=== PATIENT | male | born 2000 | race Caucasian/White ===

== ENCOUNTER 2023-11-24 21:36 | Emergency (ER) | payer SELFPAY ==
[~2023-11-24] VITALS: Ht 172.7 cm; Wt 67.5 kg
[2023-11-24] MEDS ORDERED: ondansetron HCL 4 MG/2 ML VIAL IV ONE (22:00)
[2023-11-24] MEDS ORDERED: SODIUM CHLORIDE 0.9% 1,000 ML IV ONE (22:00)
[2023-11-24] MEDS ORDERED: MORPHINE SULFATE 4 MG/ML VIAL IV ONE (22:00)
[2023-11-24 22:14] LABS: HEMATOCRIT 45.5 % (35.0-50.0); HEMOGLOBIN 15.8 g/dL (12.0-18.0); MCH 30.3 (27-36); MCHC 34.7 g/dl (30-36); MCV 87.3 fl (81-99); PLATELET COUNT 158 K/uL (140-440); RBC 5.22 M/ul (4.3-5.7); RDW 13.3 (10.5-15.0)
[2023-11-24 22:24] LABS: ALBUMIN 4.6 g/dL (3.4-5.0); ALBUMIN/GLOBULIN RATIO 1.21 (1.1-2.4); ANION GAP 15.7 (7-21); BILIRUBIN, TOTAL 0.5 ng/dL (0.2-1.0); BUN/CREATININE RATIO 15.07 (6.0-28.6); CALCIUM 9.6 mg/dL (8.5-10.1); CREATININE, SERUM 1.26 mg/dL (0.70-1.30); POTASSIUM 3.7 mmol/L (3.5-5.1); PROTEIN, TOTAL 8.4 g/dL (6.4-8.2)
[2023-11-24 22:30] LABS: BANDS, MANUAL DIFF 20; LYMPHOCYTES, MANUAL DIFF 23; MONOCYTES, MANUAL DIFF 12; NEUTROPHILS, MANUAL DIFF 44
[2023-11-24 22:52] LABS: BILIRUBIN, URINE NEGATIVE (negative); BLOOD/HGB, URINE NEGATIVE (Negative); KETONE, URINE >=80 (Negative); LEUK ESTERASE, URINE NEGATIVE (negative); NITRITE, URINE NEGATIVE (negative)
[2023-11-24 22:59] LABS: INFLUENZA B NAA POSITIVE (NEGATIVE); RESPIRATORY SYNCYTIAL VIR NAA NEGATIVE (NEGATIVE)
[2023-11-24] MEDS ORDERED: LOMOTIL TABLET1 EACH PO (23:37)
[2023-11-24] MEDS ORDERED: ONDANSETRON ODT8 MG PO (23:37)
[2023-11-24] MEDS ORDERED: TAMIFLU75 MG PO (23:37)
[2023-11-24] MEDS ORDERED: ONDANSETRON 4 MG HOME.PACK SL ONE (23:45)
[2023-11-25 00:12] VITALS: BP 121/77
== END 2023-11-25 00:05 | disposition home or self-care (01) ==
LOC: ED 21:36
PROVIDERS: Family Medicine
DX: J10.1 Influenza due to other identified influenza virus with other respiratory manifestations (principal); Z88.0 Allergy status to penicillin; Z88.2 Allergy status to sulfonamides; Z88.5 Allergy status to narcotic agent; Z88.1 Allergy status to other antibiotic agents
CPT/HCPCS: 36415; 74177; 80053; 81003; 83690; 85025; 87177; 87502; 96374; 99284-25; A9270; J2405; J7030; U0002